=== PATIENT | male | born 1960 | race Caucasian/White ===

== ENCOUNTER 2016-08-13 13:16 | Emergency (ER) | payer MEDICAID ==
[~2016-08-13] VITALS: Ht 170.2 cm; Wt 70.9 kg
[~2016-08-13 13:16] MED LIST: METF500T4 PO
[2016-08-13] MEDS ORDERED: MAGNESIUM SULFATE 2 GM, MVI, ADULT NO.1 WITH VIT K 10 ML, THIAMINE HCL 100 MG, FOLIC AC... IV ONE ×5 (14:15)
[2016-08-13] MEDS ORDERED: LORazepam 2 MG/ML VIAL IVP ONE (18:30)
[2016-08-13 21:01] VITALS: BP 138/72
== END 2016-08-13 21:03 | disposition home or self-care (01) ==
LOC: EMS 13:21
DX: F10.129 Alcohol abuse with intoxication, unspecified (principal); E11.9 Type 2 diabetes mellitus without complications; F17.210 Nicotine dependence, cigarettes, uncomplicated; Y90.8 Blood alcohol level of 240 mg/100 ml or more
CPT/HCPCS: 51702; 82962; 96365; 96366; 96375; 99285; 99406; G0480; J2060; J3411; J3475; J3490 ×2; J7030